=== PATIENT | female | born 1960 | race Caucasian/White ===

== ENCOUNTER 2023-11-07 14:13 | Outpatient (AMB) | payer OTHER, SELFPAY ==
--- NOTE | 2023-11-07 14:17 | MHC.OFFWIV ---
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 vision Intake Note: pt is here today for dizzy spells blurred vision started 1 week ago Patient Tobacco Use Status: Current everyday Tobacco user Allergies asicol Allergy (Mild, Uncoded 11/07/23 14:49) rash Medication List - Last Reconciled 11/07/23 by JOVANI Morrow albuterol sulfate 90 mcg/actuation inhalation albuterol sulfate mg inhalation amlodipine 5 mg PO DAILY azathioprine 100 mg PO BID azithromycin 250 mg PO DIRECTED clopidogrel 75 mg PO DAILY escitalopram oxalate 10 mg PO DAILY metoprolol succinate ER 25 mg PO DAILY rosuvastatin 40 mg PO DAILY Do you need a note to return to daycare/school/sports/work: No HPI HPI Comments History of Present Illness Details Patient is a 62-year-old female in today for a sick visit. Patient has a past medical history significant for COPD, lung cancer, CVD, anxiety and depression, Crohn's. Patient presents today off complaints dizziness over the past 2 weeks. Patient states that he dizziness feels as if the room is spinning. States she has occasional blurry vision. Denies double vision. Denies nausea vomiting diarrhea. Denies chest pain does offer complaint of dyspnea on exertion which she states is baseline. Patient denies numbness or epigastric pain. The on exam her extraocular motors are intact, CN 2 through 12 are intact. Patient has negative Romberg, able to tandem walk, able to put heel to arce. Patient has strong equal brewery representative strength bilaterally. No aphasia or difficulty speaking. Patient's PERRLA. In office EKG obtained. Will also obtain CBC and CMP. Patient is positive for Harpreet-Hallpike maneuver. Nystagmus +increase in dizziness with head movements. [facility] Medical History (Updated 11/07/23 @ 15:03 by JOVANI Morrow) Crohn's disease Coronary artery disease Anxiety and depression Lung cancer Social History Patient Tobacco Use Status: Current everyday Tobacco user Review of Systems Const All systems reviewed & are unremarkable except as noted in HPI and below Denies chills, Denies fever(s) and Denies headache(s) Eyes Reports blurry vision, Denies eye discharge, Denies irritation and Denies itchy eyes ENT Reports dizziness and Denies headache(s) Card Denies chest pain, Denies syncope and Reports dyspnea on exertion Resp Reports dyspnea on exertion GI Denies diarrhea, Denies nausea and Denies vomiting Musc Denies abnormal gait and Denies tingling Neuro Reports Abnormal speech present, Denies abnormal gait, Denies confusion, Reports dizziness, Denies syncope, Denies headache(s), Denies Sensory deficit (Neuro), Denies tingling and Denies paresthesias Psych Reports anxiety and Denies confusion Aller/Immun Denies itchy eyes Physical Exam Vital Signs: Last Vital Signs Temp 97.6 F 11/07/23 14:24 Pulse 64 11/07/23 14:24 BP 140/80 H 11/07/23 14:24 Pulse Ox 96 11/07/23 14:24 Oxygen Delivery Method Room Air 11/07/23 14:24 BMI result Body Mass Index 35.6 Const Other: Appearance: Alert.? Oriented X3.? No acute distress.? Head: Normocephalic, Eyes: Pupils equal, round and reactive to light.?EOMI. +Accomodation. ENT: Pharynx normal.?TM intact and pearly [place]. Neck: Normal inspection.? Neck supple.? CVS: Bradycardia.? Pulses normal.? Respiratory: No respiratory distress. Upper wheeze bilaterally. Abdomen: Soft and nontender.? Skin: Skin warm and dry.? Normal skin color.? Normal skin turgor.? Extremities: No lower extremity edema.? No calf ttp. 5/5 strength to bilateral upper and lower extremities Back: No midline tenderness, no C-spine tenderness, full range of motion, no CVA tenderness bilaterally Neuro: Oriented X 3.? No motor deficit.? No sensory deficit. CN 2-12 intact Positive harpreet-joon pike manuever. General: No confusion Orientation/consciousness: patient oriented x3 and No confusion Eyes Pupils: Equal, round and reactive pupils present Neuro General: patient oriented x3, gait normal, no focal motor deficits, CN's II-XI intact bilaterally, normal sensation to monofilament, deep tendon reflexes 2+ bilaterally, No confusion and [place] Hallpike Cranial nerves: Yes Equal, round and reactive pupils present, Yes Normal accommodation reflex present, Yes Bilaterally intact EOM present, Yes Midline tongue present and Yes Ability to bilaterally elevate shoulders present Cognition (Neuro): normal cognition Speech: Abnormal speech present Gait exam (Neuro): Normal gait present Motor exam (neuro): 5/5 motor strength present throughout Sensory Exam: No Sensory deficit (Neuro) Office Procedures EKG [id number], Complete Assessment & Plan Assessment & Plan (1) Dizzinesses: Comment: Patient sinus bradycardia with right bundle branch block on EKG. Due to patient's presentation of dizziness, with blurred vision. Patient has been sent to the emergency room. Patient has been offered ride via ambulance she has declined this. Will get ride. Code(s): R42 - Dizziness and giddiness Plan: Take your medications as prescribed. If you were prescribed antibiotics today, it is important that you take your medication to their entirety, do not skip any doses, do not finish them early. Follow-up with your primary care provider this week. Return to the emergency department with new or worsening symptoms. Such as fevers, chills, chest pain, shortness of breath, nausea, vomiting, dizziness, headache, vision changes, lethargy In case of emergency call 911 Plan follow up with PCP. Orders: Orders Complete Blood Count Auto Diff Today Z13.0 - Encounter for screening for diseases of the blood and blood-forming organs and certain disorders involving the immune mechanism Comprehensive Met. Panel Today Z91.89 - Other specified personal risk factors, not elsewhere classified AMB EKG-In Office Today Z13.6 - Encounter for screening for cardiovascular disorders Coding Level of Care Code Est Pt Level 3 (47722) Diagnoses Dizzinesses R42 CPT Codes EKG - CPT: 80585-[id number], Complete ([id number]) Time Spent (min) 22
[2023-11-07 14:24] VITALS: BP 140/80; PULSE 64; TEMP 36.4; O2SAT 96; BMI 35.6
== END 2023-11-07 16:25 | disposition home or self-care (01) ==
PROVIDERS: PCP Internal Medicine; Visit Provider Nurse Practitioner Primary Care
DX: R42 Dizziness and giddiness (principal)
CPT/HCPCS: 93000; 99213